=== PATIENT | female | born 1975 | race Caucasian/White ===

== ENCOUNTER 2019-09-19 14:11 | Emergency (ER) | payer BC ==
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
== END 2019-09-19 15:13 | disposition home or self-care (01) ==
LOC: JP.ED 14:11
DX: S60.211A Contusion of right wrist, initial encounter (principal); S20.219A Contusion of unspecified front wall of thorax, initial encounter; F17.210 Nicotine dependence, cigarettes, uncomplicated; W22.8XXA Striking against or struck by other objects, initial encounter
CPT/HCPCS: 99283